=== PATIENT | female | born 1970 | race Caucasian/White ===

== ENCOUNTER 2023-04-10 13:11 | Emergency (ER) | payer OTHER, BC, SELFPAY ==
[2023-04-10] VITALS (12 sets, daily range): BP systolic 111–139; BP diastolic 62–78; PULSE 64–104; RESP 14–22; TEMP 36.7; O2SAT 98–100; BMI 34.2
--- NOTE | 2023-04-10 13:45 | PC.NURSE ---
Patient presents to ED for intermittent dizziness waking up Sunday. Patient states waking up Sunday with dizziness and spinning sensation. Patient describes pain to left side of head and nausea, episode resolved on its own. Patient states since Sunday she has had multiple similar. Patient states feeling unsteady on her feet when episodes are occurring. Patient states a left-sided headache at the moment, gait is steady as patient walks to the bathroom.
--- NOTE | 2023-04-10 14:51 | ED.NEUROSD ---
HPI - Neuro Symptoms/Deficit General Chief Complaint: Neuro Symptoms/Deficit Stated Complaint: dizziness Time Seen by Provider: 04/10/23 14:30 Source: patient Mode of arrival: Ambulatory Limitations: no limitations History of Present Illness HPI Narrative: 52-year-old female with no reported medical issues who states Sunday, 3 days ago she started having vertigo-like symptoms. Patient states it started while she was sleeping, episodes have been intermittent typically more when she is sleeping and rolled over in bed. But has a occasionally happened at other times. Patient states she felt like her vision was shaking. She did not have any double vision at any point. States felt like the room was sort of spinning and she is felt balance occasionally. Denies any numbness, tingling or weakness difficulty with speech, no vision changes otherwise. No loss of vision. Patient has not had a little bit of a headache initially with the episodes but none persistently. Patient denies any chest pain, no shortness of breath, she would some nausea but never any vomiting. No other GI or urinary symptoms. Patient states she has not really had similar symptoms in the past. She did try Lacey maneuvers at home to see if it would help but did this while she was asymptomatic and developed symptoms. She has been sleeping somewhat propped up. Patient states she has not on any prescription medications, denies any major surgeries. No known drug allergies. No tobacco, alcohol or recreational drugs. On Anticoagulants: No Related Data Previous Rx's Medication Instructions Recorded meclizine 25 mg chewable tablet 25 mg PO QID PRN dizziness #20 tabs 04/10/23 Allergies Allergy/AdvReac Type Severity Reaction Status Date / Time No Known Drug Allergies Allergy Verified 04/10/23 13:21 Review of Systems Review of Systems ROS Unobtainable: All systems reviewed & are unremarkable except as noted in HPI and below Hematologic/Lymphatic On Anticoagulants: No Patient History Social History Smoking Status: Never smoker Smoking Status: Never smoker alcohol intake frequency: 0-2 drinks per day Substance Use Type: does not use Exam Narrative Exam Narrative: GEN: well nourished, well appearing female, alert and oriented x 3, patient appears to be in mild distress. HEENT: Atraumatic, pupils are equal round reactive to light, extraocular movements are intact, [place]-Hallpike is negative bilaterally, nares are clear, TMs are clear with no fluid, there is no conjunctival pallor. Throat is clear without any exudates, erythema, tonsillar enlargement or uvular deviation, no facial droop HEART: Regular rate and rhythm without murmur, clicks, rubs. No carotid bruits, pulses are equal in upper and lower extremities LUNGS:Lungs clear to auscultation, no wheezes, rales, crackles, chest moves symmetrically ABD:bowel sounds normal, soft, non-tender, no guarding, rebound, rigidity, no masses noted, no hepatosplenomegaly :No CVA tenderness MSCL: Non-tender, no muscle atrophy, muscles strength 5/5 upper and lower extremities, full range of motion, normal gait NEURO:CN 2-12 intact, sensation normal, finger nose finger test normal, heel isidro test normal Initial Vital Signs Initial Vital Signs: Vital Signs Temperature 98.0 F 04/10/23 13:15 Pulse Rate 104 H 04/10/23 13:15 Respiratory Rate 18 04/10/23 13:15 Blood Pressure 129/75 04/10/23 13:15 Pulse Oximetry 99 04/10/23 13:15 Oxygen Delivery Method Room Air 04/10/23 13:15 Scores NIH Stroke Scale Level of Conciousness: Alert, keenly responsive Ask month/age: Answers both questions correctly. Open/close eyes, close hand: Performs both tasks correctly Best gaze horizontal: Normal Visual romano: No visual loss Facial palsy: Normal symetrical movement Left arm drift: No drift for full 10 sec Right arm drift: No drift for full 10 sec Left leg drift: No drift for full 5 sec Right leg drift: No drift for full 5 sec Limb ataxia: Absent Sensory on face/arms/legs: Normal, no sensory loss Best language: No aphasia, normal Dysarthria: Normal Extinction or inattention: No abnormality Total NIH Stroke scale score: 0 Course Orders Ordered: Discontinued Medications Sodium Chloride (Normal Saline 0.9%) 1,000 mls @ 1,000 mls/hr IV BOLUS ONE Stop: 04/10/23 16:12 Last Infusion: 04/10/23 16:28 Dose: Infused Documented By: Admin: 04/10/23 15:28 Dose: 1,000 mls/hr Documented By: JUAN Vital Signs Vital signs: Vital Signs - 8 hr 04/10/23 13:15 04/10/23 13:34 04/10/23 13:39 Temperature 98.0 F Pulse Rate 104 H 84 78 Respiratory Rate 18 16 22 Blood Pressure 129/75 Pulse Oximetry 99 100 Oxygen Delivery Method Room Air 04/10/23 13:39 04/10/23 14:06 04/10/23 14:53 Temperature Pulse Rate 74 78 Respiratory Rate 19 19 Blood Pressure 139/78 Pulse Oximetry 100 99 Oxygen Delivery Method 04/10/23 14:54 04/10/23 14:54 04/10/23 15:00 Temperature Pulse Rate 74 Respiratory Rate 18 Blood Pressure 118/70 111/62 Pulse Oximetry 100 Oxygen Delivery Method 04/10/23 15:00 04/10/23 15:30 04/10/23 15:31 Temperature Pulse Rate 73 73 70 Respiratory Rate 20 20 Blood Pressure Pulse Oximetry 99 99 99 Oxygen Delivery Method 04/10/23 15:31 04/10/23 16:00 04/10/23 16:00 Temperature Pulse Rate 64 Respiratory Rate 18 Blood Pressure 131/71 125/69 Pulse Oximetry 100 Oxygen Delivery Method 04/10/23 16:30 04/10/23 16:30 04/10/23 17:00 Temperature Pulse Rate 66 67 Respiratory Rate 22 14 Blood Pressure 126/71 Pulse Oximetry 99 98 Oxygen Delivery Method 04/10/23 17:00 Temperature Pulse Rate Respiratory Rate Blood Pressure 120/67 Pulse Oximetry Oxygen Delivery Method MDM - Neuro Symptoms/Deficit Lab Data 04/10/23 13:36 04/10/23 13:36 Labs: Lab Results 04/10/23 Range/Units 13:36 WBC 7.3 (4.5-11.0) X10^3/uL RBC 4.39 (4.0-5.2) X10^6/uL Hgb 13.5 (12.0-16.0) g/dL Hct 40.5 (36-46) % MCV 92.2 (80-100) fL MCH 30.6 (26-34) PG MCHC 33.2 (30-36) % RDW 13.5 (11.6-14.8) % Plt Count 226 (150-400) X10^3/uL Neut % (Auto) 69.2 (50-75) % Lymph % (Auto) 20.3 L (25-40) % Tyler % (Auto) 9.1 (3-14) % Eos % (Auto) 0.9 L (2-4) % Baso % (Auto) 0.5 (0-2) % Neut # (Auto) 5100 (5196-5551) /uL Lymph # (Auto) 1500 (8719-7567) /uL Tyler # (Auto) 700 (0-900) /uL Eos # (Auto) 100 (0-450) /uL Baso # (Auto) 0 (0-100) /uL PT 11.7 (9.4-12.5) SECONDS INR 1.0 (0.9-1.3) APTT 31 (25.1-36.5) SECONDS Sodium 137 (137-145) mmol/L Potassium 3.5 (3.4-5.1) mmol/L Chloride 105 (98-107) mmol/L Carbon Dioxide 22 (22-32) mmol/L BUN 14 (7-17) mg/dL Creatinine 0.58 (0.52-1.04) mg/dL Estimated GFR > 60 (>60) mL/min BUN/Creatinine Ratio 24.1 H (6-22) Glucose 120 H (70-100) mg/dL Calcium 8.3 L (8.4-10.2) mg/dL Total Bilirubin 0.6 (0.2-1.3) mg/dL AST 28 (14-36) IU/L ALT 20 (<35) IU/L Alkaline Phosphatase 60 (38-126) U/L Total Protein 7.4 (6.3-8.2) g/dL Albumin 3.9 (3.5-5.0) g/dL Globulin 3.5 (1.7-4.1) g/dL Albumin/Globulin Ratio 1.1 (1.0-2.8) Urine Dip Bedside Urine Glucose Negative Bedside Urine Bilirubin - Negative Bedside Urine Ketone - Negative Urine Specific [place] 1.010 Bedside Urine Occult Blood - Negative Bedside Urine pH 6.0 Bedside Urine Protein - Negative Bedside Urine Urobilinogen - Negative Bedside Urine Nitrite - Negative Bedside Urine Leukocytes - Negative Esterase Imaging Data CT scan - head: Radiologist's Impression: Close Head/Neck CTA (Signed) Niyah Avalos - 04/10/[address] (Signed) Niyah Avalos - 04/10/23 Launch?Image [address] [address] [address] Scan Report Signed Patient: Tasia Patel MR#: [id number] : 1970 Acct:[id number] Age/Sex: 52 / F Date of Service: 04/10/23 Loc: ED Accession Number: [id number] Procedure: CT head/brain wo con Ordering Provider: Michelle Arias D.O. PROCEDURE: CT HEAD/BRAIN WO CON INDICATIONS: vertigo symptoms, started sunday, better but occasionally h TECHNIQUE: Noncontrast 4.5 mm thick angled axial sections acquired from the foramen magnum to the vertex, with coronal and sagittal reformats. For radiation dose reduction, the following was used: automated exposure control, adjustment of mA and/or kV according to patient size. COMPARISON: None. FINDINGS: Image quality: Diagnostic. CSF spaces: Basal cisterns are patent. No extra-axial fluid collections. The ventricles are symmetric in size and shape. Brain: No intracranial bleeds or masses. There is cerebral volume loss for age, with resultant ventricular and sulcal prominence. There are periventricular and deep white matter chronic small vessel ischemic changes. There is intracranial internal carotid artery atherosclerosis. Skull and face: Calvarium and visualized facial bones appear intact, without suspicious lesions. Sinuses: Visualized sinuses and mastoids are clear. IMPRESSION: No acute intracranial pathology. Dictated by: Niyah Avalos MD, PhD on 04/10/2023 at 15:43 Approved by: Niyah Avalos MD, PhD on 04/10/2023 at 15:44 CTA - brain/neck: Radiologist's Impression: [address] [address] [address] Scan Report Signed Patient: Tasia Patel MR#: [id number] : 1970 Acct:[id number] Age/Sex: 52 / F Date of Service: 04/10/23 Loc: ED Accession Number: [id number] Procedure: CT angio head and neck Ordering Provider: Michelle Arias D.O. PROCEDURE: CT ANGIO HEAD AND NECK INDICATIONS: vertigo symptoms, started sunday, better but occasionally h TECHNIQUE: After the administration of intravenous contrast, 1 mm thick sections acquired from the aortic arch through the [place] of [place]. 3-dimensional oznmxif-ffyywvjan-hptbpzgaje (MIP) and/or volume rendering reformats were acquired of the central intracranial vasculature and neck separately. For radiation dose reduction, the following was used: automated exposure control, adjustment of mA and/or kV according to patient size. COMPARISON: CT head April 10, 2023. FINDINGS: Image quality: Diagnostic. HEAD CT ANGIOGRAPHY: Anterior circulation: Intracranial internal carotid arteries are normal in size and flow. The flow within the paired anterior cerebral arteries is normal and symmetric. The flow within the middle cerebral arteries is normal and symmetric. The anterior communicating artery is seen. No aneurysms are seen. Posterior circulation: Visualized portions of the vertebral arteries demonstrate normal caliber, and join to form a normal appearing basilar artery. Flow within the posterior cerebral arteries is normal and symmetric. No aneurysms are seen. NECK CT ANGIOGRAPHY: Carotid system: The great vessels demonstrate a conventional anatomy as they arise from the aortic arch. The origins of the common carotid arteries appear patent. The common carotid arteries demonstrate normal caliber and courses. The bifurcation regions are both widely patent. The internal carotid arteries demonstrate normal calibers and courses. Posterior circulation: The origins of the vertebral arteries both appear widely patent. The more superior extracranial portions of both vertebral arteries also demonstrate normal courses and calibers. They join to form a normal appearing basilar artery. Soft tissues: Visualized neck soft tissues demonstrate no suspicious abnormalities. Bones: No suspicious bony lesions. Visualized cervical spine appears normally aligned. IMPRESSION: No large vessel occlusion, vascular stenosis, vascular dissection or aneurysm. Any quantitative measurements of stenosis were performed using NASCET criteria. Dictated by: Niyah Avalos MD, PhD on 04/10/2023 at 15:44 Approved by: Niyah Avalos MD, PhD on 04/10/2023 at 15:48 ECG Data Attestation: I personally reviewed and interpreted this ECG as follows: Prior ECG tracings: not available for review Interpretation: Sinus rhythm rate of 68 [place] 148 QRS of 94 QTC of 412. No acute ST elevation or depression noted. MDM Narrative Medical decision making narrative: 52-year-old female with vertigo, after discussion as triage note mentioned double vision patient states there was no double vision it was just shaky, this started several days ago. She has felt a little off balance symptoms have been mostly when she is lying in bed in moves. She has avoided moving her head quickly. States symptoms have been intermittent and not persistent has not had any major symptoms today. She did try a police/[place]-Hallpike at home which caused her symptoms but is negative here today and patient did not have any symptoms. Patient defers anything for symptoms such as meclizine she states she has not having any currently. Labs CBC shows low lymphocytes otherwise normal hemoglobin, white count and platelets. Normal coags, glucose of 120 normal LFTs EKG shows no acute change Head CT is negative CT angio head and neck no large vessel occlusion, stenosis dissection or aneurysm. Patient has had slow improvement of symptoms, no acute neurologic changes on examination with an NIH of 0. Patient felt appropriate for discharge home with meclizine and referral to ENT for follow-up if persistent symptoms. Did discuss return precautions. Stroke Core Measures Exclusion Criteria TPA in CVA: Symptom Onset >3 or 4.5 Hours Discharge Plan Departure Patient Disposition: Home Clinical Impression: Vertigo Instructions: DI for Vertigo Activity Restrictions/Additional Instructions: Please follow-up with your physician or ENT for recheck if symptoms are persisting. Contact information is included below for ENT. You can take meclizine 1-2 tablets every 6 hours as needed for vertigo-like symptoms. A prescription is included with your discharge paperwork but you can also obtain this [id number]-fhpjalp. Please return for severe headaches, double vision, new numbness, tingling or weakness, difficulty with ambulation, difficulty with speech, facial droop or other new or concerning changes. Prescriptions: New meclizine 25 mg tablet,chewable 25 mg PO QID PRN (Reason: dizziness) Qty: 20 0RF Referrals: Christian Montalvo MD [Physician] - Stand Alone Forms: Patient Portal/API
--- NOTE | 2023-04-10 15:13 | DI.CT.S_ITS ---
PROCEDURE: CT ANGIO HEAD AND NECK INDICATIONS: vertigo symptoms, started sunday, better but occasionally h TECHNIQUE: After the administration of intravenous contrast, 1 mm thick sections acquired from the aortic arch through the [place] of [place]. 3-dimensional wsgbfdc-kbffwcugp-pvcpoibhjl (MIP) and/or volume rendering reformats were acquired of the central intracranial vasculature and neck separately. For radiation dose reduction, the following was used: automated exposure control, adjustment of mA and/or kV according to patient size. COMPARISON: CT head April 10, 2023. FINDINGS: Image quality: Diagnostic. HEAD CT ANGIOGRAPHY: Anterior circulation: Intracranial internal carotid arteries are normal in size and flow. The flow within the paired anterior cerebral arteries is normal and symmetric. The flow within the middle cerebral arteries is normal and symmetric. The anterior communicating artery is seen. No aneurysms are seen. Posterior circulation: Visualized portions of the vertebral arteries demonstrate normal caliber, and join to form a normal appearing basilar artery. Flow within the posterior cerebral arteries is normal and symmetric. No aneurysms are seen. NECK CT ANGIOGRAPHY: Carotid system: The great vessels demonstrate a conventional anatomy as they arise from the aortic arch. The origins of the common carotid arteries appear patent. The common carotid arteries demonstrate normal caliber and courses. The bifurcation regions are both widely patent. The internal carotid arteries demonstrate normal calibers and courses. Posterior circulation: The origins of the vertebral arteries both appear widely patent. The more superior extracranial portions of both vertebral arteries also demonstrate normal courses and calibers. They join to form a normal appearing basilar artery. Soft tissues: Visualized neck soft tissues demonstrate no suspicious abnormalities. Bones: No suspicious bony lesions. Visualized cervical spine appears normally aligned. IMPRESSION: No large vessel occlusion, vascular stenosis, vascular dissection or aneurysm. Any quantitative measurements of stenosis were performed using NASCET criteria. Dictated by: Niyah Avalos MD, PhD on 04/10/2023 at 15:44 Approved by: Niyah Avalos MD, PhD on 04/10/2023 at 15:48
--- NOTE | 2023-04-10 15:13 | DI.CT.S_ITS ---
PROCEDURE: CT HEAD/BRAIN WO CON INDICATIONS: vertigo symptoms, started sunday, better but occasionally h TECHNIQUE: Noncontrast 4.5 mm thick angled axial sections acquired from the foramen magnum to the vertex, with coronal and sagittal reformats. For radiation dose reduction, the following was used: automated exposure control, adjustment of mA and/or kV according to patient size. COMPARISON: None. FINDINGS: Image quality: Diagnostic. CSF spaces: Basal cisterns are patent. No extra-axial fluid collections. The ventricles are symmetric in size and shape. Brain: No intracranial bleeds or masses. There is cerebral volume loss for age, with resultant ventricular and sulcal prominence. There are periventricular and deep white matter chronic small vessel ischemic changes. There is intracranial internal carotid artery atherosclerosis. Skull and face: Calvarium and visualized facial bones appear intact, without suspicious lesions. Sinuses: Visualized sinuses and mastoids are clear. IMPRESSION: No acute intracranial pathology. Dictated by: Niyah Avalos MD, PhD on 04/10/2023 at 15:43 Approved by: Niyah Avalos MD, PhD on 04/10/2023 at 15:44
[2023-04-10] MEDS: SODIUM CHLORIDE 0.9% 1,000 ML 1000 ML IV (15:28)
[2023-04-10 15:29] LABS: Prothrombin Time 11.7 SECONDS (9.4-12.5)
[2023-04-10 15:30] LABS: Add Manual Diff / Slide Review NO; Basophils Absolute Auto 0 /uL (0-100); Basophils Percent Auto 0.5 % (0-2); Eosinophils Absolute Auto 100 /uL (0-450); Eosinophils Percent Auto 0.9 % (2-4); Hematocrit 40.5 % (36-46); Hemoglobin 13.5 g/dL (12.0-16.0); Lymphocytes Absolute Auto 1500 /uL (1100-4500); Lymphocytes Percent Auto 20.3 % (25-40); Mean Corpuscular HGB Conc 33.2 % (30-36); Mean Corpuscular Hemoglobin 30.6 PG (26-34); Mean Corpuscular Volume 92.2 fL (80-100); Monocytes Absolute Auto 700 /uL (0-900); Monocytes Percent Auto 9.1 % (3-14); Neutrophils Absolute Auto 5100 /uL (1500-7000); Neutrophils Percent Auto 69.2 % (50-75); Platelet Count 226 X10^3/uL (150-400); Red Blood Cell Count 4.39 X10^6/uL (4.0-5.2); Red Cell Distribution Width 13.5 % (11.6-14.8); White Blood Cell Count 7.3 X10^3/uL (4.5-11.0)
[2023-04-10 15:31] LABS: PTT Partial Thromboplastin Tim 31 SECONDS (25.1-36.5)
[2023-04-10 15:36] LABS: Alanine Aminotransferase 20 IU/L (<35); Albumin 3.9 g/dL (3.5-5.0); Albumin Globulin Ratio 1.1 (1.0-2.8); Alkaline Phosphatase 60 U/L (38-126); Aspartate Aminotransferase 28 IU/L (14-36); BUN Creatinine Ratio 24.1 (6-22); Bilirubin Total 0.6 mg/dL (0.2-1.3); Blood Urea Nitrogen 14 mg/dL (7-17); Calcium 8.3 mg/dL (8.4-10.2); Carbon Dioxide 22 mmol/L (22-32); Chloride 105 mmol/L (98-107); Estimated Glomerular Filt Rate > 60 mL/min (>60); Globulin 3.5 g/dL (1.7-4.1); Glucose 120 mg/dL (70-100); HEMOLYSIS < 15 (0-50); Potassium 3.5 mmol/L (3.4-5.1); Sodium 137 mmol/L (137-145); Total Protein 7.4 g/dL (6.3-8.2)
== END 2023-04-10 17:40 | disposition home or self-care (01) ==
PROVIDERS: Emergency Provider Emergency Medicine
DX: R42 Dizziness and giddiness (principal)
CPT/HCPCS: 36415; 70450; 70496; 70498; 80053; 81003; 85025; 85610; 85730; 93005; 96360; 99284; Q9967

== ENCOUNTER 2024-05-08 06:08 | Day surgery (SDC) | payer OTHER, BC, SELFPAY ==
[2024-04-30 11:57] VITALS: BMI 25.1
[2024-05-08] VITALS (10 sets, daily range): BP systolic 108–133; BP diastolic 61–73; PULSE 50–80; RESP 13–20; TEMP 36.3–36.6; O2SAT 98–100; BMI 25.1
--- NOTE | 2024-05-08 | PATH_ITS ---
[facility] Accession Number: [id number] No. of containers..03 Tissue . 01 Material submitted: . PART A: fallopian tube - BILATERAL FALLOPIAN TUBES, RIGHT OVARY PART B: endometrium - ENDOMETRIAL POLYPS PART C: endocervix - ENDOCERVICAL POLYPS . 01 Diagnosis: A. BILATERAL FALLOPIAN TUBES, RIGHT OVARY, BILATERAL SALPINGECTOMY AND RIGHT OOPHORECTOMY (WEIGHT 29 GRAMS): Ovary with dense cortical stroma, a benign serous cyst, and and multiple, benign cystic follicles. Right fallopian tube, complete cross-sections; negative for significant atypia. Left fallipian tube, complete cross-sections; negative for significant atypia. . B. ENDOMETRIAL POLYPS: Benign polyp (5 mm), favor origin from lower uterine segment; negative for significant atypia. . C. ENDOCERVICAL POLYPS: Fragments of disordered proliferative endometrium; negative for endmoetrioid intraepithelial neoplasia or malignancy. Some endometrial fragments demonstrate prominent vessels, suggestive of polyp, if clinical and imaging studies are concordant. Scant fragments of myometrium; negative for significant atypia. [facility] 05/13/2024 1734 Local . 01 Electronically signed: . Klaudia Ordonez MD, Pathologist NPI- [id number] . 01 Gross description: . A. Received in formalin with two patient identifiers and bilateral fallopian tubes, right ovary, is a presumed left fallopian tube (6.2 x 1.0 cm) presumed right fallopian tube (5.6 x 0.9 cm) attached to a right ovary per the requisition (29 grams, 5.7 x 4.5 x 3.3 cm). . Both tubes have violaceous smooth serosa with cystic structures up to 0.8 cm in greatest dimension filled with epperson serous fluid. . The ovary is epperson and distended. The external surface is inked blue and sectioning reveals a multiloculated cystic structure filled with epperson to hemorrhagic serous fluid. The casper are thin and smooth with no excrescences identified, and a moderate amount of unremarkable ovarian parenchyma is distorted by cyst. 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 A2: [place] fallopian tube to include one-half of bisected fimbriae and cross sections. A3-A7: Ovary and cyst. . B. Received in formalin with two patient identifiers and endometrial polyps, are multiple epperson to brown soft tissue fragments aggregating to 0.5 x 0.4 x 0.2 cm. Filtered and submitted entirely in B1. . C. Received in formalin with two patient identifiers and endocervical polyp, are multiple epperson soft tissue fragments admixed with hemorrhagic material aggregating to 3.0 x 2.5 x 0.4 cm. Filtered and submitted entirely in C1-C2. ([id number]) /MRV 05/09/20242033 [facility] . 01 Pathologist provided ICD-10: N83.209, N84.0, R50.81 . 01 CPT . 174839, 498672, 069365 Specimen Comment: A courtesy copy of this report has been sent to [phone] Performed at: [address] [address], [place], [place] [id number] MD Parish Sky MD Phone: [phone]
[2024-05-08] MEDS: LACTATED RINGERS 1,000 ML 42 ML IV ×2 (06:51→09:19)
[2024-05-08] MEDS: ACETAMINOPHEN 325 MG TABLET 975 MG PO (07:04)
[2024-05-08] MEDS: SCOPOLAMINE 1 PATCH TOP (07:47)
--- NOTE | 2024-05-08 08:03 | PM.GYNHP.1 ---
History of Present Illness History of Present Illness Narrative: Tasia Patel is a 53 year old female with a 5 cm right ovarian cyst, and thickened endometrial lining. She presents today for a laparoscopic right salpingo-oophorectomy, left salpingectomy, and a D&C hysteroscopy with MyoSure. [facility] Social History household members: spouse Smoking Status: Never smoker alcohol intake: never Meds Home Medications and Allergies Home Medications Medication Instructions Recorded Confirmed Type estradiol 0.025 mg/24 hr 1 patch topical 2XW 04/30/24 05/08/24 History semiweekly transdermal patch progesterone micronized 100 mg 100 mg PO DAILY 04/30/24 05/08/24 History capsule Allergies Allergy/AdvReac Type Severity Reaction Status Date / Time No Known Drug Allergies Allergy Verified 04/28/24 15:47 Exam Vital Signs (past 8 hours): - 05/08/24 06:44 Temperature 97.9 F Pulse Rate 54 L Respiratory Rate 17 Blood Pressure 133/73 Pulse Oximetry 100 Oxygen Delivery Method Room Air Oxygen Delivery Method Room Air Narrative Exam Narrative: HEENT: No thyromegaly, no anterior cervical or supraclavicular lymphadenopathy. Lungs:Clear to auscultation bilaterally, no wheezes. Cardiovascular: Regular rate and rhythm, no murmurs, rubs, or gallops. Abdomen: No scars. No hepatosplenomegaly. No masses palpable. External genitalia: Normal Vagina: Normal Cervix: Normal Bimanual exam: 7 Week size anteverted uterus. Mobile. Extremities: No edema Assessment & Plan Assessment & Plan narrative: Assessment: 53-year-old with a 5 cm right ovarian cyst, thickened endometrial lining Plan: Laparoscopic right salpingo-oophorectomy, left salpingectomy, D&C hysteroscopy with MyoSure The risks, benefits, and alternatives to the procedure were explained to the patient. The risks including bleeding, infection, injury to the bowel, bladder, or ureters, or uterine perforation. She understands these risks and agrees to proceed. A full par Q was held and consent form was signed. Time-Based Coding :: [TOTAL MINUTES] spent with patient and on the chart (including review of chart, obtaining history, exam, reviewing outside data, placing orders, documenting exam and treatment plan, and counseling patient) on [DATE].
--- NOTE | 2024-05-08 08:05 | PM.PREOP ---
Pre-operative Note Interval Note History & Physical reviewed/Exam performed by Physician: Yes Changes to H&P: No H&P completed within 30 days and has changed as indicated here:: 05/08/24
--- NOTE | 2024-05-08 08:52 | SUR.OPER ---
Lithotomy on padded OR bed. Pinon Pad Positioner under torso. Head on pillow, arms padded and tucked at sides. Legs secured in padded yellow fins stirrups.
[2024-05-08] MEDS: BUPIVACAINE 0.5% W/ EPI (PF) 30 ML VIAL INJ (09:14)
--- NOTE | 2024-05-08 09:43 | PM.GYNOP.1 ---
Operative Date/Time/Diagnoses Date of procedure: 05/08/24 Time of procedure: 09:43 Pre-op diagnosis: 5 cm right ovarian cyst Endometrial hyperplasia Post-op diagnosis: same Procedure & Clinicians Procedure: Procedures Operation Date: 05/08/24 07:45 Actual Procedure Side Surgeon p Laparoscopic Right Salpingo-oophorectomy, Left Salpingectomy Rosa Willingham MD s Hysteroscopy D&C, myosure, removal of polyp Rosa Willingham MD Indications: 53 year old with a 5cm right ovarian cyst and thickened endometrial lining on ultrasound Surgeon: Rosa Willingham Anesthesia Type: General and Local Operative Notes Findings: 6 wk size anteverted uterus 5cm right ovarian cyst Normal left ovary Normal tubes Normal liver and gallbladder Normal appendix Closure Type: primary Specimen(s): endometrial curettings, endometrial polyp, left tube and right tube & ovary Estimated blood loss (mL): 10 Blood products transfused: none Procedure in detail: After informed consent was obtained, the patient was taken to the operating room where she was placed in the dorsal supine position. After adequate general endotracheal anesthesia was achieved, she was placed in the dorsal lithotomy position, and prepped and draped in the usual sterile fashion. A time-out was performed. A bivalve speculum was placed into the vagina and the anterior lip of the cervix was grasped with a single-tooth tenaculum. The cervical os was sequentially dilated until the Zumi uterine manipulator could pass easily into the endometrial cavity. The single-tooth tenaculum was removed from the anterior lip of the cervix. The bivalve speculum was removed from the vagina. Attention was then turned to the abdomen where 6 cc of 0.5% Marcaine with epinephrine were injected in the umbilical fold. A 5 mm incision was made. The Veress needle was placed into the peritoneal cavity, and its placement confirmed by aspiration and drop test. The abdominal cavity was insufflated with 3.2 L of CO2. The Veress needle was removed, and a 5 mm trocar was placed without difficulty. The cuff was inflated with 3 cc of air. Two other incisions were made 4 cm lateral to the midline, with care to avoid any vessels with transillumination. These were made after 6 cc of 0.5% Marcaine with epinephrine were injected. Two 5 mm trocars were placed without difficulty, under direct visualization. The cuff was inflated with 3 cc of air. The right tube and ovary were grasped with an atraumatic grasper. Using the power seal, the infundibulopelvic ligament on the right side was cauterized and cut. The mesosalpinx was cauterized and cut all the way down to the cornua of the uterus. The tube was amputated at the cornua. The right tube and ovary were placed in the anterior cul-de-sacs. The left tube was grasped with an atraumatic grasper. Using the power seal, the mesosalpinx was cauterized and cut all the way to the cornua of the uterus. This tube was removed through the lateral port. 6 cc of 0.5% Marcaine with epinephrine were injected above the pubic symphysis. A 12 mm incision was made. A 12 mm trocar was placed under direct visualization. The endobag was placed through the suprapubic incision. The right tube and ovary were placed into the bag. The trocar was removed and the edges of the bag were brought up through the skin. A 30 cc syringe was attached to an 18 gauge needle and the cyst fluid in the right ovary was aspirated. The fascia was slightly extended on the suprapubic incision. The bag was removed with the right tube and ovary in place. The fascia was reapproximated with 0 Vicryl in a running fashion. The subcutaneous layer was irrigated with warm normal saline. Two simple interrupted sutures were placed to reapproximate the subcutaneous layer. The abdomen was reinspected. There was no bleeding noted in the pelvis. A small amount of fluid was aspirated from the posterior cul-de-sacs. The instruments were removed from the abdomen. The CO2 was allowed to escape. The incisions were repaired with 4-0 Monocryl in a subcuticular fashion. Steri-Strips and Allevyn dressings were placed. Attention was turned to the vagina where the Zumi uterine manipulator was removed from the uterus. The os was dilated to the # 8 Hegar dilator. The MyoSure hysteroscope passed easily into the endometrial cavity. Several polyps were visualized. Using the MyoSure Lite, the polyps were resected. The MyoSure hysteroscope was removed from the uterus. The single-tooth tenaculum was removed from the anterior lip of the cervix. The bivalve speculum was removed from the vagina. Sponge, lap, and instrument counts were correct x2. The patient tolerated the procedure well, and was taken to PACU in stable condition. Fluid deficit 315 cc Total volume of fluid 911 cc Final pressure 100 mmHg Cutting time 41 seconds Complications: none Post-operative Condition: stable Disposition: PACU Plan for aftercare: Home after recovery
== END 2024-05-08 11:37 | disposition home or self-care (01) ==
PROVIDERS: PCP Naturopath; Referring Provider Obstetrics & Gynecology; Visit Provider Obstetrics & Gynecology
PROC: (CPT 58661; principal; 2024-05-08 07:45)
PROC: 0UDB8ZZ Extraction of Endometrium, Via Natural or Artificial Opening Endoscopic (ICD-10-PCS; CPT 58558; 2024-05-08 07:45)
DX: N84.0 Polyp of corpus uteri (principal); N83.201 Unspecified ovarian cyst, right side
CPT/HCPCS: 58661; 58558; J1100; J1885; J2250; J2405; J2704; J3010; J3490

== ENCOUNTER 2024-06-15 08:01 | Emergency (ER) | payer OTHER, BC, SELFPAY ==
[2024-06-15] VITALS (8 sets, daily range): BP systolic 113–126; BP diastolic 65–71; PULSE 55–66; RESP 14–23; TEMP 36.8; O2SAT 95–100
--- NOTE | 2024-06-15 08:16 | EKG_ITS ---
[address] [address] Test Date: 2024-06-15 Pat Name: Tasia Patel Department: Room: Gender: Female [employer] Teacher: ESTEPHANIA : 1970 Requested By: Order Number: [id number] Reading MD: Yamil Holley Measurements Intervals [place] Rate: 62 P: -13 WI: 138 QRS: 69 QRSD: 88 T: 47 QT: 404 QTc: 410 Interpretive Statements Normal sinus rhythm Electronically Signed On 06-18-2024 17:37:33 PDT by Yamil Holley
--- NOTE | 2024-06-15 08:17 | DI.RAD.S_ITS ---
PROCEDURE: XR CHEST 1V INDICATIONS: chest pain TECHNIQUE: One view of the chest was acquired. COMPARISON: None. FINDINGS: Surgical changes and devices: None. Lungs and pleura: Lungs are clear. No pleural effusions or pneumothorax. Mediastinum: Mediastinal contours appear normal. Heart size is normal. Bones and chest wall: No suspicious bony lesions. Overlying soft tissues appear unremarkable. IMPRESSION: No acute cardiopulmonary abnormality is seen. Dictated by: Marcelo Borjas M.D. on 06/15/2024 at 9:01 Approved by: Marcelo Borjas M.D. on 06/15/2024 at 9:02
[2024-06-15] MEDS: ASPIRIN 81 MG CHEW TAB 324 MG PO (08:30)
[2024-06-15 08:33] LABS: Add Manual Diff / Slide Review NO; Basophils Absolute Auto 100 /uL (0-100); Basophils Percent Auto 0.8 % (0-2); Eosinophils Absolute Auto 100 /uL (0-450); Eosinophils Percent Auto 1.1 % (2-4); Hematocrit 46.3 % (36-46); Hemoglobin 15.2 g/dL (12.0-16.0); Lymphocytes Absolute Auto 1200 /uL (1100-4500); Lymphocytes Percent Auto 18.9 % (25-40); Mean Corpuscular HGB Conc 32.8 % (30-36); Mean Corpuscular Hemoglobin 31.2 PG (26-34); Mean Corpuscular Volume 95.3 fL (80-100); Monocytes Absolute Auto 600 /uL (0-900); Monocytes Percent Auto 9.5 % (3-14); Neutrophils Absolute Auto 4500 /uL (1500-7000); Neutrophils Percent Auto 69.7 % (50-75); Platelet Count 219 X10^3/uL (150-400); Red Blood Cell Count 4.86 X10^6/uL (4.0-5.2); Red Cell Distribution Width 13.5 % (11.6-14.8); White Blood Cell Count 6.5 X10^3/uL (4.5-11.0)
[2024-06-15 08:34] LABS: Prothrombin Time 11.6 SECONDS (9.4-12.5)
[2024-06-15 08:36] LABS: PTT Partial Thromboplastin Tim 30 SECONDS (25.1-36.5)
[2024-06-15 08:40] LABS: Alanine Aminotransferase 24 IU/L (<35); Albumin 4.3 g/dL (3.5-5.0); Albumin Globulin Ratio 1.4 (1.0-2.8); Alkaline Phosphatase 63 U/L (38-126); Aspartate Aminotransferase 34 IU/L (14-36); BUN Creatinine Ratio 28.4 (6-22); Bilirubin Total 0.8 mg/dL (0.2-1.3); Blood Urea Nitrogen 25 mg/dL (7-17); Carbon Dioxide 31 mmol/L (22-32); Chloride 107 mmol/L (98-107); Creatine Kinase 62 U/L (30-135); Estimated Glomerular Filt Rate > 60 mL/min (>60); Glucose 65 mg/dL (70-99); HEMOLYSIS < 15 (0-50); Lipase 114 U/L (23-300); Magnesium 2.1 mg/dL (1.6-2.3); Sodium 143 mmol/L (137-145); Total Protein 7.3 g/dL (6.3-8.2)
[2024-06-15 08:52] LABS: NT-proBNP (BNP-Adult 18+) 45 pg/mL (<125); Troponin I < 0.012 ng/mL (0.01-0.034)
--- NOTE | 2024-06-15 09:04 | ED.CHESTPAIN ---
HPI - Chest Pain General Chief Complaint: Chest Pain Stated Complaint: Stress and anxiety; heart palpatations Time Seen by Provider: 06/15/24 09:04 Source: patient, RN notes reviewed and old records reviewed Mode of arrival: Ambulatory Limitations: no limitations Limitations: no limitations History of Present Illness HPI narrative: 53-year-old female with history of anxiety. Patient notes quite a bit of insomnia for several months notes that she has a relationship where she was and has been very stressed and anxious has a lot of insomnia also expressed this to her surgeon Dr. Willingham when she had her right ovary removed for large ovarian cyst in April. Patient has been trying to manage with [id number] medications and do her nature pass but finds it has not been effective. She notes she has been having some jaw discomfort sometimes feels it in her chest but not always concurrently. No fevers or chills. No shortness of breath. Patient notes sometimes wakes up with symptoms sometimes feels it while she was at work. Exertion does not seem to worsen her symptoms. She does try deep breathing exercises his sometimes helpful. She denies any nausea or vomiting, no diaphoresis during these episodes no syncope. Denies any chest pain but more of a tightness symptom. She denies any swelling in her extremities. No new urinary or GI symptoms. Sometimes feels mildly sweaty at nighttime but no night sweats reported. Patient has been taking vitamins, she was on progesterone and estrogen patch and multiple ityh-lzg-[id number] supplements. Patient notes she has a right oophorectomy as well as salpingectomy in April. She was still has her left present. Denies any other surgeries. No tobacco, alcohol or recreational drugs. Her mother has atrial tachycardia but no other medical issues no embolic history. She was working on establishing with a primary care with Dr. Otero. She does note she has been taking hydroxyzine which has not been helpful. She states Dr. Willingham discussed starting a medication which per EMR appears to be venlafaxine but she has not taken it. Her main complaint is insomnia currently. Related Data Home Medications Medication Instructions Recorded Confirmed progesterone micronized 100 mg 100 mg PO DAILY 04/30/24 05/08/24 capsule Previous Rx's Medication Instructions Recorded estradiol 0.0375 mg/24 hr 1 patch transdermal 2XW #8 ea 05/08/24 semiweekly transdermal patch oxycodone 5 mg tablet 5 mg PO Q6H PRN pain #14 tabs 05/08/24 venlafaxine 37.5 mg 37.5 mg PO QPM Anxiety #30 caps 06/09/24 capsule,extended release 24 hr (Effexor XR) Allergies Allergy/AdvReac Type Severity Reaction Status Date / Time No Known Drug Allergies Allergy Verified 04/28/24 15:47 Review of Systems Review of Systems ROS Unobtainable: All systems reviewed & are unremarkable except as noted in HPI and below Patient History Medical History Menorrhagia with regular cycle Endometrial thickening on ultrasound Ovarian cyst Social History household members: spouse Smoking Status: Never smoker alcohol intake: never Smoking Status: Never smoker alcohol intake frequency: 0-2 drinks per day Exam Narrative Exam Narrative: GENERAL: Alert and oriented x three, female in mild distress HEENT: Head normocephalic, atraumatic, EOMI, pupils reactive, face symmetric, moist mucous membranes NECK: Supple, full range of motion CARDIOVASCULAR: Regular rate and rhythm without murmurs, rubs or gallops. No JVD. No edema bilateral lower extremities. RESPIRATORY: Breath sounds equal bilaterally, no wheezes rales or rhonchi. No tachypnea or accessory muscle use ABDOMEN: Soft, nontender. Normoactive bowel sounds all 4 quadrants. No guarding or rebound, rigidity, no mass : No CVA tenderness EXTREMITIES: Normal range of motion, no clubbing or edema. Neurovascularly intact NEUROLOGICAL: Cranial nerves II through XII grossly intact. Moving all extremities SKIN: Warm, dry, no petechiae, no rashes or lesions. Initial Vital Signs Initial Vital Signs: Vital Signs Temperature 98.2 F 06/15/24 08:13 Pulse Rate 60 06/15/24 08:13 Respiratory Rate 19 06/15/24 08:13 Blood Pressure 119/65 06/15/24 08:13 Pulse Oximetry 100 06/15/24 08:13 Oxygen Delivery Method Room Air 06/15/24 08:13 Scores HEART Score Heart Score history: Slightly Suspicious Heart Score EKG: Normal Heart Score Age: 45-64 years old Heart Score risk factors: No known risk factors Heart Score troponin: < or = to normal limit Heart Score Total: 1 Course Orders Ordered: ED Orders 06/15/24 10:19 Trop I [Troponin I] Stat 06/15/24 11:04 Consult to CENTRAL OFFICE WORKER - [employer] Stat Discontinued Medications Aspirin (Aspirin 81 Mg Chew Tab) 324 mg PO NOW ONE Stop: 06/15/24 08:18 Last Admin: 06/15/24 08:30 Dose: 324 mg Documented By: AKIN Lorazepam (Lorazepam 0.5 Mg Tablet) 0.5 mg PO NOW ONE Stop: 06/15/24 10:11 Last Admin: 06/15/24 10:13 Dose: 0.5 mg Documented By: AKIN Vital Signs Vital signs: Vital Signs - 8 hr 06/15/24 10:30 06/15/24 10:30 06/15/24 11:00 Pulse Rate 57 L Respiratory Rate 17 Blood Pressure 121/71 126/71 Pulse Oximetry 97 06/15/24 11:00 Pulse Rate 66 Respiratory Rate 20 Blood Pressure Pulse Oximetry 97 MDM - Chest Pain Lab Data 06/15/24 08:15 06/15/24 08:15 Labs: Lab Results 06/15/24 06/15/24 Range/Units 08:15 10:19 WBC 6.5 (4.5-11.0) X10^3/uL RBC 4.86 (4.0-5.2) X10^6/uL Hgb 15.2 (12.0-16.0) g/dL Hct 46.3 H (36-46) % MCV 95.3 (80-100) fL MCH 31.2 (26-34) PG MCHC 32.8 (30-36) % RDW 13.5 (11.6-14.8) % Plt Count 219 (150-400) X10^3/uL Neut % (Auto) 69.7 (50-75) % Lymph % (Auto) 18.9 L (25-40) % Schleicher % (Auto) 9.5 (3-14) % Eos % (Auto) 1.1 L (2-4) % Baso % (Auto) 0.8 (0-2) % Neut # (Auto) 4500 (1799-0126) /uL Lymph # (Auto) 1200 (4625-0420) /uL Schleicher # (Auto) 600 (0-900) /uL Eos # (Auto) 100 (0-450) /uL Baso # (Auto) 100 (0-100) /uL PT 11.6 (9.4-12.5) SECONDS INR 1.0 (0.9-1.3) APTT 30 (25.1-36.5) SECONDS Sodium 143 (137-145) mmol/L Potassium 4.0 (3.4-5.1) mmol/L Chloride 107 (98-107) mmol/L Carbon Dioxide 31 (22-32) mmol/L BUN 25 H (7-17) mg/dL Creatinine 0.88 (0.52-1.04) mg/dL Estimated GFR > 60 (>60) mL/min BUN/Creatinine Ratio 28.4 H (6-22) Glucose 65 L (70-99) mg/dL Calcium 9.0 (8.4-10.2) mg/dL Magnesium 2.1 (1.6-2.3) mg/dL Total Bilirubin 0.8 (0.2-1.3) mg/dL AST 34 (14-36) IU/L ALT 24 (<35) IU/L Alkaline Phosphatase 63 (38-126) U/L Total Creatine Kinase 62 (30-135) U/L Troponin I < 0.012 < 0.012 (0.01-0.034) ng/mL NT-Pro-B Natriuret Pep 45 (<125) pg/mL Total Protein 7.3 (6.3-8.2) g/dL Albumin 4.3 (3.5-5.0) g/dL Globulin 3.0 (1.7-4.1) g/dL Albumin/Globulin Ratio 1.4 (1.0-2.8) Lipase 114 (23-300) U/L ECG Data Attestation: I personally reviewed and interpreted this ECG as follows: Interpretation: Sinus rhythm rate of 62 [place] 138 QRS 88 QTC of 410, no acute ST elevation depression noted. Patient was prior from 04/10/2023. Appears similar to today. No acute ST changes appreciated MDM Narrative Medical decision making narrative: 53-year-old female with complaint of jaw pain upper chest discomfort but notes quite a bit of anxiety her symptoms are not always concurrent. No exertional component. Patient's has a family history of atrial tachycardia but no other cardiac risk factors. She notes quite a bit of insomnia and that her anxiety seems to be her main complaint currently. Blood glucose was noted to be little bit low she states she did have some cereal this morning did have apple juice and applesauce here in the department. Heart score is 1. EKG sinus rhythm no acute ST changes, CBC shows normal white count, hemoglobin of 15.2 hematocrit 46.3 platelets are 219. Coags are negative BUN 25 normal electrolytes and creatinine, glucose is 65 LFTs are negative troponins less than 0.012 with a BNP of 45. Repeat troponin is less than 0.012 Chest x-ray shows no acute change Patient had aspirin 324 mg. Patient had Ativan 0.5 mg p.o. which he found very helpful but does not wish for prescription. She does have a prescription for venlafaxine that she has filled but not started. Encouraged her to start this. She was concerned about insomnia she was hydroxyzine recommended 1-2 tablets prior to sleep to see if this is helpful. Patient has also reached out to set up primary care follow up but we will have our CENTRAL OFFICE WORKER reach out to see if they can help as well. She states she was already and counseling. She was feels comfortable with discharge home reviewed all of her findings from today. Discharge Plan Departure Patient Disposition: Home Clinical Impression: Atypical chest pain Activity Restrictions/Additional Instructions: Please follow up, follow up with Dr. Otero's office to see if you can set up an appointment. I will ask our director social welfare to see if she can help establish an appointment time but that may not be today because it is Sunday and schedulers are not here today. You can take hydroxyzine 1-2 tablets prior to sleep as needed. I would recommend going ahead and starting the venlafaxine prescription sent by Dr. Willingham. This is a daily medication. It does take some time to be fully effective sometimes up to 6 weeks. Please return for new or worsening symptoms, fevers going to 100.4 F, new worsening chest pain, increasing shortness of breath, passing out, new swelling of your extremities or other new or concerning changes. Prescriptions: No Action venlafaxine [Effexor XR] 37.5 mg capsule,extended release 24hr 37.5 mg PO QPM Qty: 30 2RF progesterone micronized 100 mg capsule 100 mg PO DAILY estradiol 0.0375 mg/24 hr patch semiweekly 1 patch transdermal 2XW Qty: 8 11RF Rx Instructions: apply 1 patch to lower hip or abdomen twice a week oxycodone 5 mg tablet 5 mg PO Q6H PRN (Reason: pain) Qty: 14 0RF Referrals: Augusta Boland ND [Primary Care Provider] - Abril Otero MD [Physician] - Stand Alone Forms: Patient Portal/API/Survey
[2024-06-15] MEDS: LORazepam 0.5 MG TABLET PO (10:13)
[2024-06-15 10:46] LABS: Troponin I < 0.012 ng/mL (0.01-0.034)
--- NOTE | 2024-06-15 11:54 | CM.SWNOTE ---
ED RN MANAGER Note Patient is 53 y/o female who presents to ED due to concern for anxiety, stress and heart palpitations. Patient is hoping to establish care with PCP Dr. Otero. Patient attempted to secure appt with portal but has not heard back. RN MANAGER briefly meets with patient upon her d/c, she reports that she has a therapist and an upcoming appt on Sunday. RN MANAGER discusses having an RN MANAGER call her tomorrow regarding establishing care with Dr. Otero. Patient endorses preference for soonest available appt, any time or day. Patient to d/c to home upon medical clearance, ED RN MANAGER to follow up with tomorrow (Sunday) regarding establish care appt with Dr. Otero. CHARLIE Sorenson
--- NOTE | 2024-06-16 18:34 | CM.SWNOTE ---
ED APARTMENT COMMUNITY ASSISTANT MANAGER Follow Up Note: Reviewed chart and received hand off. It is reported that pt requesting to establish with PCP Dr. Otero at [facility]. It is noted that pt had no preference for date or time but requesting Dr. Otero as provider. ED APARTMENT COMMUNITY ASSISTANT MANAGER calls [facility] directly and no answer at first attempt. ED APARTMENT COMMUNITY ASSISTANT MANAGER calls appointment line and was able to schedule new patient appointment at soonest available time: 08/21/24 at 1:30pm, check in time at 1:00pm. ED APARTMENT COMMUNITY ASSISTANT MANAGER calls pt, introduced self and role. APARTMENT COMMUNITY ASSISTANT MANAGER reports this appointment time and pt seemed anxious and nearly panicked over the phone, That won't work. Don't they know how urgent this is? I need to get blood drawn and my levels checked. ED APARTMENT COMMUNITY ASSISTANT MANAGER confirms that pt is established with a MH counselor. ED APARTMENT COMMUNITY ASSISTANT MANAGER confirms that pt can see a provider at any time, pt confirms that they only want to see Dr. Otero or Dr. Velazquez (OBGYN), no other providers. ED APARTMENT COMMUNITY ASSISTANT MANAGER calls [facility], it is reported that Dr. Otero has no availability this week. The soonest available appt is on 07/01 and will need authorization by Dr. Otero. [facility] will return this APARTMENT COMMUNITY ASSISTANT MANAGER's call with confirmation. Plan: Pt requesting sooner ED follow up appointment with Dr. Otero. ED APARTMENT COMMUNITY ASSISTANT MANAGER to follow up at next date with [facility]. CHARLIE Hummel
== END 2024-06-15 11:18 | disposition home or self-care (01) ==
PROVIDERS: Emergency Provider Emergency Medicine; PCP Naturopath
DX: R07.89 Other chest pain (principal); G47.00 Insomnia, unspecified; F41.9 Anxiety disorder, unspecified
CPT/HCPCS: 36415; 71045; 80053; 82550; 83690; 83735; 83880; 84484; 85025; 85610; 85730; 93005; 99284

== ENCOUNTER 2024-06-17 17:30 | Emergency (ER) | payer OTHER, BC, SELFPAY ==
[2024-06-17 17:57] VITALS: BP 122/78; PULSE 70; RESP 16; TEMP 37; O2SAT 97; BMI 25.1
--- NOTE | 2024-06-17 18:34 | ED_ITS ---
<Statement entered by Amish Russell, - 06/17/24 18:47> Dr. Russell co Signs statement I was available for consultation during this patient's emergency department visit. This chart is signed by myself for administrative purposes only. I did not have direct contact with this patient during this visit. They were seen independently by the APC HPI - Anxiety General Chief Complaint: Anxiety Stated Complaint: panic attack Time Seen by Provider: 06/17/24 18:15 Source: patient Mode of arrival: Ambulatory History of Present Illness HPI narrative: 53-year-old female returns to the ED with anxiety and panic attacks she suffered earlier today. Patient was seen in the ED on 06/15/2024 for anxiety, given a dose of Ativan and discharged home to take hydroxyzine if she were to continue to have anxiety. Patient sees Dr. Willingham who has prescribed her Celexa and the hydroxyzine. Patient has not started the Celexa yet. Patient was originally prescribed venlafaxine which he only took 1 pill of yesterday and did not like the effects, however this has been changed to Celexa today. Patient denies fever, chills, chest pain, shortness of breath, nausea, vomiting, lightheadedness, dizziness, syncope. Patient is also on the estradiol patch and progesterone. Patient states that she is feeling much better now, that the anxiety attack has passed. Patient came to the ED since she was sent by her counselor when she was in the midst of the panic attack. No SI, HI. Related Data Home Medications Medication Instructions Recorded Confirmed progesterone micronized 100 mg 100 mg PO DAILY 04/30/24 06/17/24 capsule hydroxyzine HCl 25 mg tablet 25 mg PO TID PRN Anxiety 06/17/24 06/17/24 Previous Rx's Medication Instructions Recorded estradiol 0.05 mg/24 hr semiweekly 1 patch transdermal 2XW #8 ea 06/17/24 transdermal patch Allergies Allergy/AdvReac Type Severity Reaction Status Date / Time No Known Drug Allergies Allergy Verified 04/28/24 15:47 Review of Systems Constitutional Constitutional: Denies chills, Denies fatigue, Denies fever(s), Denies frequent falls, Denies lethargy and Denies weakness Eyes Eyes: Denies change in vision, Denies eye discharge, Denies irritation and Denies loss of vision ENT Ears, Nose, Mouth, and Throat: Denies change in voice, Denies dizziness, Denies neck pain, Denies sore throat and Denies throat swelling Cardiovascular Cardiovascular: Denies chest pain, Denies irregular heart rhythm, Denies li ghtheadedness, Denies palpitations, Denies dyspnea, Denies dyspnea on exertion and Denies orthopnea Respiratory Respiratory: Denies cough, Denies dyspnea, Denies dyspnea on exertion and Denies wheezing Gastrointestinal Gastrointestinal: Denies abdominal pain, Denies change in bowel habits, Denies diarrhea, Denies nausea and Denies vomiting Musculoskeletal Musculoskeletal: Denies neck pain and Denies numbness Integumentary/Breasts Skin/Breast: Denies pruritus, Denies erythema, Denies rash and Denies wounds Neurologic Neurologic: Denies behavioral changes, Denies confusion, Denies dizziness, Denies frequent falls, Denies loss of vision, Denies numbness and Denies weakness Psychiatric Psychiatric: Reports anxiety, Denies behavioral changes, Denies confusion, Denies depression, Reports panic attacks, Denies homicidal ideation and Denies suicidal ideation Endocrine Endocrine: Denies fatigue, Denies flushing and Denies palpitations Hematologic/Lymphatic Hematologic/Lymphatic: Denies easy bruising Allergic/Immunologic Allergic/Immunologic: Denies urticaria, Denies throat swelling and Denies wheezing Patient History Medical History Menorrhagia with regular cycle Endometrial thickening on ultrasound Ovarian cyst Social History household members: spouse Smoking Status: Never smoker alcohol intake: never Smoking Status: Never smoker alcohol intake frequency: 0-2 drinks per day Exam Narrative Exam Narrative: Const General:?cooperative, healthy appearing and comfortable; anxious affect [facility] Head:?normal to inspection Ears:?hearing grossly normal bilaterally Nose:?external nose normal Face and sinus:?normal facial exam and sinuses nontender Mouth:?oral mucosae normal Throat:?posterior oropharynx normal Eyes General:?appearance normal, both eyes and all related structures Neck Neck:?normal visual inspection and no lymphadenopathy noted Resp Effort & Inspection:?normal respiratory effort Auscultation:?clear to auscultation bilaterally Cardio Rate:?regular rate Rhythm:?regular rhythm Neuro General:?patient alert, patient awake and patient oriented x3 Initial Vital Signs Initial Vital Signs: Vital Signs Temperature 98.6 F 06/17/24 17:57 Pulse Rate 70 06/17/24 17:57 Respiratory Rate 16 06/17/24 17:57 Blood Pressure 122/78 06/17/24 17:57 Pulse Oximetry 97 06/17/24 17:57 Oxygen Delivery Method Room Air 06/17/24 17:57 Course Vital Signs Vital signs: Vital Signs - 8 hr 06/17/24 17:57 Temperature 98.6 F Pulse Rate 70 Respiratory Rate 16 Blood Pressure 122/78 Pulse Oximetry 97 Oxygen Delivery Method Room Air MDM - Anxiety MDM Narrative Medical decision making narrative: 53-year-old female returns to the ED with anxiety and panic attacks she suffered earlier today. Patient declined Ativan today in the ED, endorses that she is feeling much better and that her anxiety attack has passed.. Patient prefers to start the Celexa and continue the hydroxyzine at home. Agrees to follow-up with Dr. Willingham regarding her progress. ED return precautions were discussed with patient. She verbalized understanding. Medical records reviewed: Yes Discharge Plan Departure Patient Disposition: Home Clinical Impression: Anxiety Instructions: DI for Anxiety -- Adult Activity Restrictions/Additional Instructions: You were evaluated in the ED today for an anxiety attack. It is reassuring to hear that you were feeling much better now. It appears that you have been prescribed Celexa and hydroxyzine by Dr. Willingham. You may take both of those medications. Please continue to follow-up with Dr. Willingham regarding your progress. Return to the ED if you have worsening symptoms. Prescriptions: No Action estradiol 0.05 mg/24 hr patch semiweekly 1 patch transdermal 2XW Qty: 8 11RF Rx Instructions: apply 1 patch twice a week hydroxyzine HCl 25 mg tablet 25 mg PO TID PRN (Reason: Anxiety) progesterone micronized 100 mg capsule 100 mg PO DAILY Referrals: Augusta Boland ND [Primary Care Provider] - Stand Alone Forms: Patient Portal/API/Survey
[2024-06-17 18:40] VITALS: BP 121/78; PULSE 69; RESP 16; O2SAT 99
== END 2024-06-17 18:49 | disposition home or self-care (01) ==
PROVIDERS: Emergency Provider Student in an Organized Health Care Education/Training Program; PCP Naturopath
DX: F41.9 Anxiety disorder, unspecified (principal)
CPT/HCPCS: 99281

== ENCOUNTER 2024-06-21 07:23 | Emergency (ER) | payer OTHER, BC, SELFPAY ==
[2024-06-21] VITALS (14 sets, daily range): BP systolic 121–146; BP diastolic 71–82; PULSE 51–73; RESP 22–53; O2SAT 95–100; BMI 25.1
--- NOTE | 2024-06-21 07:29 | EKG_ITS ---
[address] [id number] [address] [address] Test Date: 2024-06-21 Pat Name: Tasia Patel Department: Room: Gender: Female [employer] Clerk: : 1970 Requested By: Order Number: [id number] Reading MD: Sadi Pate Measurements Intervals [place] Rate: 63 P: -21 UT: 120 QRS: 66 QRSD: 88 T: 48 QT: 394 QTc: 403 Interpretive Statements Normal sinus rhythm Electronically Signed On 06-21-2024 13:59:09 PDT by Sadi Pate
--- NOTE | 2024-06-21 07:29 | DI.RAD.S_ITS ---
PROCEDURE: XR CHEST 1V INDICATIONS: Chest Pain TECHNIQUE: One view of the chest was acquired. COMPARISON: [facility], CR, XR CHEST 1V, 06/15/2024, 8:15. FINDINGS: Surgical changes and devices: None. Lungs and pleura: Lungs are clear. No pleural effusions or pneumothorax. Mediastinum: Mediastinal contours appear normal. Heart size is normal. Bones and chest wall: No suspicious bony lesions. Overlying soft tissues appear unremarkable. IMPRESSION: No acute pulmonary process. Dictated by: Ana Joshi M.D. on 06/21/2024 at 8:41 Approved by: Ana Joshi M.D. on 06/21/2024 at 8:41
[2024-06-21] MEDS: ASPIRIN 81 MG CHEW TAB 324 MG PO (07:41)
[2024-06-21 08:13] LABS: Add Manual Diff / Slide Review NO; Basophils Absolute Auto 0 /uL (0-100); Basophils Percent Auto 0.6 % (0-2); Eosinophils Absolute Auto 100 /uL (0-450); Eosinophils Percent Auto 0.9 % (2-4); Hemoglobin 15.8 g/dL (12.0-16.0); Lymphocytes Absolute Auto 1300 /uL (1100-4500); Lymphocytes Percent Auto 17.3 % (25-40); Mean Corpuscular HGB Conc 33.6 % (30-36); Mean Corpuscular Hemoglobin 31.8 PG (26-34); Mean Corpuscular Volume 94.7 fL (80-100); Monocytes Absolute Auto 700 /uL (0-900); Monocytes Percent Auto 9.5 % (3-14); Neutrophils Absolute Auto 5500 /uL (1500-7000); Neutrophils Percent Auto 71.7 % (50-75); Platelet Count 187 X10^3/uL (150-400); Red Blood Cell Count 4.97 X10^6/uL (4.0-5.2); Red Cell Distribution Width 13.6 % (11.6-14.8); White Blood Cell Count 7.6 X10^3/uL (4.5-11.0)
[2024-06-21 08:16] LABS: Prothrombin Time 11.5 SECONDS (9.4-12.5)
[2024-06-21 08:18] LABS: PTT Partial Thromboplastin Tim 21 SECONDS (25.1-36.5)
[2024-06-21 08:20] LABS: Alanine Aminotransferase 26 IU/L (<35); Albumin 4.5 g/dL (3.5-5.0); Albumin Globulin Ratio 1.4 (1.0-2.8); Alkaline Phosphatase 55 U/L (38-126); Aspartate Aminotransferase 33 IU/L (14-36); BUN Creatinine Ratio 23.1 (6-22); Bilirubin Total 0.8 mg/dL (0.2-1.3); Blood Urea Nitrogen 18 mg/dL (7-17); Calcium 9.1 mg/dL (8.4-10.2); Carbon Dioxide 26 mmol/L (22-32); Chloride 106 mmol/L (98-107); Creatine Kinase 50 U/L (30-135); Estimated Glomerular Filt Rate > 60 mL/min (>60); Globulin 3.3 g/dL (1.7-4.1); Glucose 84 mg/dL (70-99); Lipase 113 U/L (23-300); Potassium 4.2 mmol/L (3.4-5.1); Sodium 142 mmol/L (137-145); Total Protein 7.8 g/dL (6.3-8.2)
[2024-06-21 08:21] LABS: HEMOLYSIS 64 (0-50); Lactate (Lactic Acid) 2.3 mmol/L (0.7-2.1)
[2024-06-21 08:31] LABS: NT-proBNP (BNP-Adult 18+) 45 pg/mL (<125); Troponin I < 0.012 ng/mL (0.01-0.034)
--- NOTE | 2024-06-21 08:49 | ED_ITS ---
HPI - Arrhythmia/Palpitations General Chief Complaint: Arrhythmia/Palpitations Stated Complaint: SOB Time Seen by Provider: 06/21/24 08:44 Source: patient and family Mode of arrival: Ambulatory Limitations: no limitations History of Present Illness HPI narrative: 53-year-old female with history of anxiety complaint of palpitation. Patient given a prescription for Celexa she was started this about 3 days before. She also has been having relationship difficulties in her has been recently left her. She was become increasingly anxious. She describes a pounding in her chest she states that it feels fast. On the monitor her heart rates in the 70s to 60s but she feels that it was pounding and fast currently. She denies chest pain she was felt a little short of breath, she has been sweaty, she denies fevers. No syncope, no nausea or vomiting. No issues with bowel movements or urination. She states she can feel hot and flushed. She was she will feel shaky and kind of weak. She states this does feel little bit different than her episodes here before but she does relate it thinking that it is anxiety. She states it has been persistent over the last day and a half. She did recently start the Celexa prescribed on Sunday, took it as well as Sunday has not taken a dose today. She has been taking hydroxyzine as needed for anxiety but isn't sure if that is helpful. She was still has not estrogen patch that she uses but no other daily medications. Denies any drug allergies. No tobacco, alcohol or recreational drugs. She has not seen Dr. Willingham who prescribes her the medication since she was last seen here. She has not no thoughts of SI or HI. Related Data Home Medications Medication Instructions Recorded Confirmed progesterone micronized 100 mg 100 mg PO DAILY 04/30/24 06/17/24 capsule hydroxyzine HCl 25 mg tablet 25 mg PO TID PRN Anxiety 06/17/24 06/17/24 Previous Rx's Medication Instructions Recorded estradiol 0.05 mg/24 hr semiweekly 1 patch transdermal 2XW #8 ea 06/17/24 transdermal patch trazodone 150 mg tablet 150 mg PO BEDTIME PRN insomnia #10 06/21/24 tabs Allergies Allergy/AdvReac Type Severity Reaction Status Date / Time No Known Drug Allergies Allergy Verified 04/28/24 15:47 Review of Systems Review of Systems ROS Unobtainable: All systems reviewed & are unremarkable except as noted in HPI and below Patient History Medical History Menorrhagia with regular cycle Endometrial thickening on ultrasound Ovarian cyst Social History household members: spouse alcohol intake: never alcohol intake frequency: 0-2 drinks per day Exam Narrative Exam Narrative: GENERAL: Alert and oriented x three, female in intk-sb-dwxbjlgu distress. HEENT: Head normocephalic, atraumatic, EOMI, pupils reactive, face symmetric, moist mucous membranes NECK: Supple, full range of motion CARDIOVASCULAR: Regular rate and rhythm without murmurs, rubs or gallops. No JVD. No edema. RESPIRATORY: Breath sounds equal bilaterally, no wheezes rales or rhonchi. ABDOMEN: Soft, nontender. Normoactive bowel sounds all 4 quadrants. No guarding or rebound, rigidity, no mass : No CVA tenderness EXTREMITIES: Normal range of motion, no clubbing or edema. Neurovascularly intact NEUROLOGICAL: Cranial nerves II through XII grossly intact. Moving all extremities SKIN: Warm, dry, no petechiae, no rashes or lesions. PSYCH: Patient describes anxiety, denies SI or HI. Initial Vital Signs Initial Vital Signs: Vital Signs Pulse Rate 61 06/21/24 07:25 Respiratory Rate 22 06/21/24 07:25 Blood Pressure 146/82 H 06/21/24 07:25 Pulse Oximetry 99 06/21/24 07:25 Oxygen Delivery Method Room Air 06/21/24 07:25 Course Orders Ordered: ED Orders 06/21/24 09:38 CT angio chest PE protocol Stat 06/21/24 09:46 [place] [facility] [place] Stat Discontinued Medications Aspirin (Aspirin 81 Mg Chew Tab) 324 mg PO NOW ONE Stop: 06/21/24 07:29 Last Admin: 06/21/24 07:41 Dose: 324 mg Documented By: Lorazepam (Lorazepam 0.5 Mg Tablet) 0.5 mg PO NOW ONE Stop: 06/21/24 09:19 Last Admin: 06/21/24 09:37 Dose: 0.5 mg Documented By: SPF Vital Signs Vital signs: Vital Signs - 8 hr 06/21/24 10:01 06/21/24 10:30 06/21/24 11:00 Pulse Rate 65 61 54 L Respiratory Rate 26 H 53 H Pulse Oximetry 98 98 98 Oxygen Delivery Method Room Air Room Air 06/21/24 11:30 06/21/24 12:00 06/21/24 12:30 Pulse Rate 62 70 67 Respiratory Rate Pulse Oximetry 98 97 95 Oxygen Delivery Method Room Air MDM - Arrhythmia/Palpitations Lab Data 06/21/24 07:41 06/21/24 07:41 Labs: Lab Results 06/21/24 06/21/24 Range/Units 07:41 10:18 WBC 7.6 (4.5-11.0) X10^3/uL RBC 4.97 (4.0-5.2) X10^6/uL Hgb 15.8 (12.0-16.0) g/dL Hct 47.0 H (36-46) % MCV 94.7 (80-100) fL MCH 31.8 (26-34) PG MCHC 33.6 (30-36) % RDW 13.6 (11.6-14.8) % Plt Count 187 (150-400) X10^3/uL Neut % (Auto) 71.7 (50-75) % Lymph % (Auto) 17.3 L (25-40) % [place] % (Auto) 9.5 (3-14) % Eos % (Auto) 0.9 L (2-4) % Baso % (Auto) 0.6 (0-2) % Neut # (Auto) 5500 (5827-4811) /uL Lymph # (Auto) 1300 (7865-9225) /uL [place] # (Auto) 700 (0-900) /uL Eos # (Auto) 100 (0-450) /uL Baso # (Auto) 0 (0-100) /uL PT 11.5 (9.4-12.5) SECONDS INR 1.0 (0.9-1.3) APTT 21 L (25.1-36.5) SECONDS D-Dimer 801 H (<500) ng/ml Sodium 142 (137-145) mmol/L Potassium 4.2 (3.4-5.1) mmol/L Chloride 106 (98-107) mmol/L Carbon Dioxide 26 (22-32) mmol/L BUN 18 H (7-17) mg/dL Creatinine 0.78 (0.52-1.04) mg/dL Estimated GFR > 60 (>60) mL/min BUN/Creatinine Ratio 23.1 H (6-22) Glucose 84 (70-99) mg/dL Lactate 2.3 H 1.0 (0.7-2.1) mmol/L Calcium 9.1 (8.4-10.2) mg/dL Magnesium 2.0 (1.6-2.3) mg/dL Total Bilirubin 0.8 (0.2-1.3) mg/dL AST 33 (14-36) IU/L ALT 26 (<35) IU/L Alkaline Phosphatase 55 (38-126) U/L Total Creatine Kinase 50 (30-135) U/L Troponin I < 0.012 (0.01-0.034) ng/mL NT-Pro-B Natriuret Pep 45 (<125) pg/mL Total Protein 7.8 (6.3-8.2) g/dL Albumin 4.5 (3.5-5.0) g/dL Globulin 3.3 (1.7-4.1) g/dL Albumin/Globulin Ratio 1.4 (1.0-2.8) Lipase 113 (23-300) U/L TSH 2.19 (0.47-4.68) uIU/mL ECG Data Attestation: I personally reviewed and interpreted this ECG as follows: Prior ECG tracings: available for review Interpretation: Sinus rhythm rate of 63 NC 120 QRS 88 QTC of 403, no acute ST elevation or depression. Patient has prior from 06/15/2024 appears similar to today's with no acute ST changes. [facility] Narrative Medical decision making narrative: EKG shows sinus rhythm no acute ST changes appears similar to prior from 06/15/2024. Labs including CBC show hematocrit of 47 otherwise normal white count, hemoglobin and platelets. PTT of 21, INR 1. Electrolytes are overall appropriate BUN 18 creatinine 0.78, lactate 2.3 glucose is 84 LFTs are negative troponins less than 0.012 with a BNP of 45. TSH is 2.19 D-dimer was added on although patient's vitals are very appropriate she was describing palpitations and some shortness of breath. When age adjusted it is still elevated [place] 801. CT angio was obtained. CTA chest shows no acute pulmonary embolism, no acute cardiopulmonary process. Chest x-ray shows no acute change. Patient had dose of oral Ativan here in the department. Patient is family note that she was had increasingly stressful situation at home her spouse recently left. She did recently start Celexa she was had 3 days' worth which may have little bit of activating component as well. She was not found hydroxyzine very helpful. After discussion she would like to meet with the COMPRESSOR HOUSE OPERATOR. Discussed all patient's with findings here. She was feeling a little bit improved after Ativan. After discussion we will leave it up to her she was going to continue her Celexa. I do recommend that she be on a daily medication. She does not wish to take any controlled substances such as Ativan. We discussed trying trazodone instead of hydroxyzine for sleep. I am caught we will reach out to patient in the next 24 hours. Discussed return precautions all questions answered. Discharge Plan Departure Patient Disposition: Home Clinical Impression: Anxiety, Insomnia Activity Restrictions/Additional Instructions: Follow up with Dr. Willingham and your counselor. The [facility] team will be reaching out to you to check in the next 24 hours. If you miss their call please call them back. The Celexa may have little bit of activating changes but I do recommend you be at least on a daily medication to improve your symptoms. If you find that this 1 is not a good fit you can talk with your physician about changing it. You can take hydroxyzine 1-2 tablets every 6 hours as needed for symptoms. If you prefer you can try trazodone 1 tablet before sleep. I would not take these medications at the same time for sleep. Prescription printed and included. Please return if you have other new or worsening symptoms, other concerning changes. Prescriptions: New trazodone 150 mg tablet 150 mg PO BEDTIME PRN (Reason: insomnia) Qty: 10 0RF No Action estradiol 0.05 mg/24 hr patch semiweekly 1 patch transdermal 2XW Qty: 8 11RF Rx Instructions: apply 1 patch twice a week hydroxyzine HCl 25 mg tablet 25 mg PO TID PRN (Reason: Anxiety) progesterone micronized 100 mg capsule 100 mg PO DAILY Referrals: Augusta Boland ND [Primary Care Provider] - Stand Alone Forms: Patient Portal/API/Survey
[2024-06-21 09:22] LABS: Reflexed Lactate in 2 Hours Y
[2024-06-21 09:31] LABS: D Dimer 801 ng/ml (<500)
[2024-06-21] MEDS: LORazepam 0.5 MG TABLET PO (09:37)
--- NOTE | 2024-06-21 09:38 | DI.CT.S_ITS ---
PROCEDURE: CT ANGIO CHEST PE PROTOCOL INDICATIONS: palpitations/anxiety/elevated dimer TECHNIQUE: After the administration of intravenous contrast, 2 mm thick sections acquired from the pulmonary apices to the posterior costophrenic angles. 3-dimensional maximum intensity projection (MIP) coronal and sagittal reformats were then acquired through the thorax. For radiation dose reduction, the following was used: automated exposure control, adjustment of mA and/or kV according to patient size. COMPARISON: None. FINDINGS: Image quality: Diagnostic. Pulmonary arteries: Pulmonary arteries are normal in size, and demonstrate no intraluminal filling defects to suggest central pulmonary embolism. Lower Neck: No enlarged lymph nodes. Thyroid: No thyroid nodules which require sonographic follow up, per consensus guidelines. Axillae: No enlarged lymph nodes. Chest Wall: Unremarkable. Bones: Unremarkable. Lungs and Pleura: No pneumothorax or pleural effusions. No consolidation or suspicious nodules. Heart: Heart size is normal. No pericardial effusion. Thoracic Vessels: No aortic aneurysm. Mediastinum and Ly: No enlarged lymph nodes. Esophagus: No wall thickening. No hiatal hernia. Upper Abdomen: Visualized upper abdomen solid organs and bowel loops appear normal. IMPRESSION: No pulmonary embolus. No acute cardiopulmonary process. Dictated by: Parviz Woodward M.D. on 06/21/2024 at 9:13 Approved by: Parviz Woodward M.D. on 06/21/2024 at 9:15
[2024-06-21 10:08] LABS: TSH w/ Reflex to FT4 2.19 uIU/mL (0.47-4.68)
--- NOTE | 2024-06-21 13:26 | CM.SWNOTE ---
ED MACHINE CHAIN MAKER Assessment Note: MACHINE CHAIN MAKER - Moisture Meter Reader Assessment MACHINE CHAIN MAKER/Moisture Meter Reader Assessment Time Spent with Patient Start date 06/21/24 Visit Start Time 12:00 End date 06/21/24 Visit End Time 12:30 Total time Care Management spent on 30 minutes patient visit-in minutes Mental Health Screening Include Onset, Duration, Intensity Presenting Problem Patient presents to the ED for acute anxiety and palpitations. Patient explains they have been under a lot of stress/life changes lately and have not been able to get much sleep. Precipitating Event(s) Patient has been experiencing a separation from her spouse since February 2024. Patient Strengths Patient is communicative and seeking help. She is also supported by her mother who is at bedside. Current Behavioral Health Provider(s) Rhonda Palencia MA, [facility] Include Facility, Provider, [facility]. Hx Mental Health and Chemical Anxiety, Insomnia Dependency Family Hx of Behavioral Abuse None reported. Psychiatric Hospitalizations (date(s)/ None reported. location) Psychosocial information & Support Patient is a 53yo female, Systems resident of [place]. She currently lives alone. School/Work Patient is a teacher at [employer]. Legal Concerns Legal Matters - Outstanding Issues None reported. Mental Status Orientation (Person/Place/Time) AOx3 Stated Mood Anxious Affect (Congruent with Mood?) Flat, congruent with mood Thought Content - Specify/Describe None reported, none identified Obsessions, Delusions, Hallucinations during assessment. Thought Processes (Ipnsrhr-Hbzzlyiz-Iypm Logical, goal directed, Racvajto-Aqncyayw-Nsjoswusow- thought blocking Nyyhdeitlqjlig-Jjhzeho-Teskeahndsux- Thought Blocking) Speech (Zwgcgz-Zihq-Dkkyspk-Rapid-Soft- Normal, soft Loud-Pressured) Motor (Kkilzk-Jpqgwozmj-Hilg-Other) Normal Insight (Uqmm-Uqmu-Dhtc/Limited) Fair Judgement (Izbs-Zsre-Ocdp/Limited) Fair Impulse Control (Adequate-Impaired) Adequate Memory (Ikqqmvogn-Rkghsp-Klzfrx, Intact Impaired-Intact) Concentration (Intact-Impaired) Intact Attention (Intact-Impaired) Intact Behavior (Appropriate-Inappropriate) Appropriate Additional Comment Patient is calm, cooperative and communicative during assessment. Risk Assessment Suicidal Ideation (Plan) No Homicidal Ideation (Plan) No Comment Denies SI/HI, no prior history . Intervention Intervention Reviewed chart and discussed with ED Provider pt's medical status and discharge needs. ED MACHINE CHAIN MAKER meets with patient. Patient endorses high levels of anxiety and having difficulty with coping with the life transitions/changes. ED MACHINE CHAIN MAKER and patient discuss goals of care. Patient explains they do not feel inpatient treatment is appropriate at this time; consented to [facility] referral and follow up call. Pt states she has an appointment with her therapist on Sunday, 06/24 and a new patient appointment with PCP on 07/01. At this time, it is the opinion of this MACHINE CHAIN MAKER that patient would benefit from inpatient psychiatric hospitalization for medication stabilization but would also benefit from care coordination from the [facility] team. Pt provided with [facility] and crisis contacts, also provided pt mother with [facility] number; MACHINE CHAIN MAKER provided education on the [facility] service for both parties. MACHINE CHAIN MAKER calls [facility] Crisis Line and initiated pt profile, requested a follow up call for patient on 06/22 in the morning time. MACHINE CHAIN MAKER informs ED provider, Dr. Arias, who indicates agreement. MACHINE CHAIN MAKER informs LIEN Herron. Plan RA Plan Patient to discharge home with the support of her mother, her daughter will also be arriving from [place] to help support her on Sunday, 06/24. Patient to have a follow up call from Mobile Crisis Outreach Team in the morning of 06/22. CHARLIE Hummel
== END 2024-06-21 13:01 | disposition home or self-care (01) ==
PROVIDERS: Emergency Provider Emergency Medicine; PCP Naturopath
DX: F41.9 Anxiety disorder, unspecified (principal); G47.00 Insomnia, unspecified
CPT/HCPCS: 36415; 71045; 71275; 80053; 82550; 83605; 83690; 83735; 83880; 84443; 84484; 85025; 85379; 85610; 85730; 93005; 99284; Q9967

== ENCOUNTER → 2024-08-12 14:57 | Outpatient (CLI) | payer OTHER, BC, SELFPAY ==
--- NOTE | 2024-08-12 14:59 | DI.RAD.S_ITS ---
PROCEDURE: XR FOOT RT MIN 3V INDICATIONS: Right heel pain TECHNIQUE: 3 views of the foot were acquired. COMPARISON: No prior right foot x-ray available for comparison. FINDINGS: 7 mm inferior calcaneal enthesophyte calcification is nonspecific may be an indication of plantar fasciitis or other process otherwise no abnormal calcifications. Mild degenerative changes at the tibiotalar, talonavicular, calcaneocuboid and 1st metatarsophalangeal joints with joint space narrowing and small osteophytes. No radiographic evidence of displaced fracture, dislocation or high attenuation soft tissue foreign body. IMPRESSION: Degenerative changes. Inferior calcaneal enthesophyte calcification. If symptoms persist or worsen, or there is high clinical suspicion of right foot/ankle abnormality, MRI could be performed. Dictated by: Cm Garcia M.D. on 08/12/2024 at 23:48 Approved by: Cm Garcia M.D. on 08/12/2024 at 23:50
== END ==
PROVIDERS: PCP Family Medicine; Referring Provider Family Medicine; Visit Provider Family Medicine
DX: M79.671 Pain in right foot (principal)
CPT/HCPCS: 73630